=== PATIENT | female | born 1985 | race Hispanic/Latino ===

== ENCOUNTER 2018-01-29 21:14 | Observation (INO) | payer BC, MEDICAID ==
--- NOTE | 2018-01-29 21:51 | ED PDOC ---
HPI: Abdomen Time Seen by Provider: 01/29/18 21:30 Chief Complaint (Nursing): Abdominal Pain Chief Complaint (Provider): Pelvic Pain History Per: Patient History/Exam Limitations: no limitations Onset/Duration Of Symptoms: Days (x2) Current Symptoms Are (Timing): Still Present Additional Complaint(s): 32 y/o female with a PMHx of endometriosis and Factor Five Leiden Deficiency presents to the ED for evaluation of pelvic pain, onset two days ago. Patient states pain is consistent with previous flares of endometriosis. Patient reports her last exploratory laparoscopy was about five and a half years ago with extensive endometriosis of the bowel, bladder and ovaries. Otherwise, patient denies fever, nausea, vomiting and urinary symptos. PMD: Kimberly Past Medical History Reviewed: Historical Data, Nursing Documentation, Vital Signs Vital Signs: Last Vital Signs Temp 98.2 F 01/29/18 21:23 Pulse 79 01/29/18 21:23 Resp 18 01/29/18 21:23 BP 118/69 01/29/18 21:23 Pulse Ox 100 01/29/18 21:23 - Medical History Other PMH: Endometriosis and Factor Five Leiden Deficiency - Surgical History Other surgeries: Exploratory Laparoscopy - Family History Family History: States: Unknown Family Hx - Social History Current smoker - smoking cessation education provided: No Alcohol: None Drugs: Denies - Home Medications Home Medications: Ambulatory Orders Medication Instructions Recorded RX: No Known Home Med 01/29/18 - Allergies Allergies/Adverse Reactions: Allergies Allergy/AdvReac Type Severity Reaction Status Date / Time No Known Allergies Allergy Verified 01/29/18 21:22 Review of Systems ROS Statement: Except As Marked, All Systems Reviewed And Found Negative Constitutional: Negative for: Fever Gastrointestinal: Negative for: Nausea, Vomiting Genitourinary Female: Positive for: Pelvic Pain. Negative for: Dysuria, Frequency, Hematuria Physical Exam - Reviewed Nursing Documentation Reviewed: Yes Vital Signs Reviewed: Yes - Physical Exam Appears: Positive for: No Acute Distress Head Exam: Positive for: ATRAUMATIC, NORMOCEPHALIC Skin: Positive for: Normal Color, Warm, Dry Eye Exam: Positive for: Normal appearance, EOMI, PERRL Neck: Positive for: Normal, Painless ROM Cardiovascular/Chest: Positive for: Regular Rate, Rhythm. Negative for: Murmur Respiratory: Positive for: Normal Breath Sounds. Negative for: Respiratory Distress Gastrointestinal/Abdominal: Positive for: Tenderness (Diffuse abdominal tenderness) Extremity: Positive for: Normal ROM. Negative for: Deformity Neurologic/Psych: Positive for: Alert, Oriented. Negative for: Motor/Sensory Deficits - Laboratory Results Result Diagrams: 01/29/18 23:01 01/29/18 22:42 - ECG O2 Sat by Pulse Oximetry: 100 (RA) Pulse Ox Interpretation: Normal Medical Decision Making Medical Decision Making: Time: 2133 Impression: 32 y/o female with acute flare of pelvic pain, in setting of known endometriosis. Plan: -- ABO/RH Type -- Type and Screen -- CMP -- ED Urine -- ED Urine Dipstick -- CBC with Differentials -- PTT -- Prothrombin Time -- Heplock Insertion -- Urinalysis -- Pelvis/Transvaginal US -- Case discussed with Dr. Gomes who advised patient can be placed on observation for further management of acute endometriosis. Scribe Attestation: Documented by Caesar Sheppard, acting as a scribe for Wade Santos MD. Provider Scribe Attestation: All medical record entries made by the Scribe were at my direction and personally dictated by me. I have reviewed the chart and agree that the record accurately reflects my personal performance of the history, physical exam, medical decision making, and the department course for this patient. I have also personally directed, reviewed, and agree with the discharge instructions and disposition. Disposition - Clinical Impression Clinical Impression: Pelvic pain, Endometriosis - Patient ED Disposition Is Patient to be Admitted: Yes Discussed With : Rashi Gomes - Disposition Disposition Time: 21:39 Condition: FAIR - Pt Status Changed To: Hospital Disposition Of: Observation
[2018-01-29] MEDS: Lactated Ringer's 1,000 ML IV STA (22:32)
[2018-01-29 22:49] LABS: SQUAMOUS EPITHIAL < 1 /hpf (0-5); URINE BACTERIA RARE (<OCC); URINE BILIRUBIN NEGATIVE (NEGATIVE); URINE BLOOD NEGATIVE (NEGATIVE); URINE CLARITY CLEAR (Clear); URINE COLOR COLORLESS (YELLOW); URINE GLUCOSE (UA) NEG (NEGATIVE); URINE LEUKOCYTE ESTERASE NEG Leu/uL (Negative); URINE PROTEIN NEGATIVE (NEGATIVE); URINE UROBILINOGEN 0.2-1.0 mg/dL (0.2-1.0)
[2018-01-29 23:02] LABS: BASO % 0.8 % (0.0-2.0); EOS # 0.1 K/uL (0.0-0.7); EOS % 1.3 % (0.0-4.0); HEMOGLOBIN 12.7 g/dL (12.0-16.0); LYMPH # 2.5 K/uL (1.0-4.3); LYMPH % 52.4 % (20.0-40.0); MEAN CELL VOLUME 91.7 fl (81.0-99.0); MEAN CORPUSCULAR HEMOGLOBIN 30.9 pg (27.0-31.0); MEAN CORPUSCULAR HGB CONC 33.7 g/dL (33.0-37.0); MEAN PLATELET VOLUME 7.3 fl (7.2-11.7); MONO # 0.3 K/uL (0.0-0.8); MONO % 5.7 % (0.0-10.0); NEUT # 1.9 K/uL (1.8-7.0); NEUT % 39.8 % (50.0-75.0); NRBC % 0.1 % (0.0-0.0); RBC 4.1 Mil/uL (3.80-5.20); RED CELL DISTRIBUTION WIDTH 12.5 % (11.5-14.5); WHITE BLOOD COUNT 4.8 K/uL (4.8-10.8)
[2018-01-29 23:05] LABS: ALB/GLOB RATIO 1.6 (1.0-2.1); ALBUMIN 4.4 g/dL (3.5-5.0); ALT/SGPT 24 U/L (9-52); AST/SGOT 29 U/L (14-36); BLOOD UREA NITROGEN 8 mg/dl (7-17); CALCIUM 9.2 mg/dL (8.4-10.2); GFR NON-AFRICAN AMERICAN > 60
[2018-01-29 23:23] LABS: INR 1.2; PROTHROMBIN TIME 14.1 Seconds (9.8-13.1)
[2018-01-29 23:24] LABS: PARTIAL THROMBOPLASTIN TIME 31.3 Seconds (25.6-37.1)
[2018-01-30] MEDS ORDERED: Magnesium Citrate Oral SOL (300 ml) PO ONE ×2 (02:47→02:54)
[2018-01-30 09:56] VITALS: BMI 18.4
--- NOTE | 2018-01-30 10:54 | US ---
Date of service: 01/29/2018 HISTORY: pelvic pain COMPARISON: None available. TECHNIQUE: Transabdominal and transvaginal pelvic ultrasound was performed with longitudinal and transverse images submitted for interpretation. FINDINGS: UTERUS: Measures 8.1 x 4.1 x 6.3 cm. Normal in size and appearance. No fibroid or other mass lesion seen. ENDOMETRIUM: Measures 11.0 mm in diameter. Unremarkable. CERVIX: No cervical abnormality identified. RIGHT OVARY: Measures 3.1 x 2.9 x 2.6 cm. No solid mass. Normal flow. A few follicles identified with the dominant follicle measure 1.5 x 1.2 cm. LEFT OVARY: Measures 2.8 x 2.7 x 2.3 cm. No solid mass. Normal flow. Small scattered follicles identified. No suspicious pattern overall. FREE FLUID: Mild amount of fluid is anechoic at the cul-de-sac. OTHER FINDINGS: None. IMPRESSION: Unremarkable uterus cervix and endometrium. Bilateral ovarian follicles with normal size ovaries and no solid masses bilateral adnexal compartments. Dominant follicle right ovary 1.5 cm. No sonographic evidence to suggest ovarian torsion at either adnexal compartment. Mild amount of fluid identified in the cul-de-sac. Concordant preliminary report from [facility], 01/30/2018 1:50 a.m..
[2018-01-30] MEDS: Lactated Ringer's 1,000 ML IV STA (12:22)
[2018-01-30] MEDS ORDERED: Rocuronium 10 mg/ml (5 ml) ONE (13:28)
[2018-01-30] MEDS ORDERED: Propofol 10 mg/ml Inj (20 ML) ONE (13:28)
[2018-01-30] MEDS ORDERED: Lidocaine 4% (Laryng-O-Jet) Kit MM ONE (13:29)
[2018-01-30] MEDS ORDERED: Succinylcholine 200 mg/10 ml Inj IV ONE (13:31)
[2018-01-30] MEDS ORDERED: Midazolam 2 MG/2 ML VIAL ONE (13:32)
[2018-01-30] MEDS ORDERED: ePHEDrine 50 mg/ml Inj ONE (13:32)
--- NOTE | 2018-01-30 13:44 | CP.PCM.HP ---
History of Present Illness - History of Present Illness History of Present Illness: 32 yo with acute abdominal pelvic pain. walk into the er history of prior surgery for endometriosis Present on Admission - Present on Admission Any Indicators Present on Admission: No History of DVT/PE: No History of Uncontrolled Diabetes: No Urinary Catheter: No Decubitus Ulcer Present: No Review of Systems - Gastrointestinal Gastrointestinal: Abdominal Pain, Bloating, Constipation - Genitourinary Genitourinary: Dysuria, Urinary Frequency, Urinary Urgency - Reproductive: Female Reproductive:Female: Dysmenorrhea, Dyspareunia, Sexual Dysfunction - Menstruation Menstruation: Normal Menses, Spotting Between Cycles Past Patient History - Past Medical History & Family History Past Medical History?: Yes - Past Social History Alcohol: None Drugs: Denies - CARDIAC Hx Cardiac Disorders: No - PULMONARY Hx Respiratory Disorders: No - NEUROLOGICAL Hx Neurological Disorder: No - HEENT Hx HEENT Problems: No - RENAL Hx Chronic Kidney Disease: No - ENDOCRINE/METABOLIC Hx Endocrine Disorders: No - HEMATOLOGICAL/ONCOLOGICAL Hx Blood Disorders: Yes (factor 5 leiden deficiency) Hx AIDS: No Hx Human Immunodeficiency Virus (HIV): No - INTEGUMENTARY Hx Dermatological Problems: No - MUSCULOSKELETAL/RHEUMATOLOGICAL Hx Musculoskeletal Disorders: No Hx Falls: No - GASTROINTESTINAL Hx Gastrointestinal Disorders: No - GENITOURINARY/GYNECOLOGICAL Hx Genitourinary Disorders: Yes (endometriosis) - PSYCHIATRIC Hx Psychophysiologic Disorder: No Hx Substance Use: Yes - SURGICAL HISTORY Hx Surgeries: Yes Other/Comment: excision sx for endometriosis - ANESTHESIA Hx Anesthesia: Yes Hx Anesthesia Reactions: No Meds Allergies/Adverse Reactions: Allergies Allergy/AdvReac Type Severity Reaction Status Date / Time No Known Allergies Allergy Verified 01/29/18 21:22 Physical Exam - GI/Abdominal Exam GI & Abdominal Exam: Tenderness Additional comments: point vaginal cuff tenderness Results - Vital Signs Recent Vital Signs: Last Vital Signs Temp 99 F 01/30/18 13:20 Pulse 75 01/30/18 13:20 Resp 20 01/30/18 13:20 BP 125/68 01/30/18 13:20 Pulse Ox 98 01/30/18 13:20 - Labs Result Diagrams: 01/29/18 23:01 01/29/18 22:42 Labs: Laboratory Results - last 24 hr 01/29/18 01/29/18 01/29/18 22:38 22:42 22:42 WBC RBC Hgb Hct MCV MCH MCHC RDW Plt Count MPV Neut % (Auto) Lymph % (Auto) Brown % (Auto) Eos % (Auto) Baso % (Auto) Neut # (Auto) Lymph # (Auto) Brown # (Auto) Eos # (Auto) Baso # (Auto) PT 14.1 H INR 1.2 APTT 31.3 Sodium 138 Potassium 3.7 Chloride 105 Carbon Dioxide 25 Anion Gap 12 BUN 8 Creatinine 0.8 Est GFR ( Amer) > 60 Est GFR (Non-Af Amer) > 60 Random Glucose 87 Calcium 9.2 Total Bilirubin 0.6 AST 29 ALT 24 Alkaline Phosphatase 36 L Total Protein 7.1 Albumin 4.4 Globulin 2.7 Albumin/Globulin Ratio 1.6 Urine Color Urine Clarity Urine pH Ur Specific [place] Urine Protein Urine Glucose (UA) Urine Ketones Urine Blood Urine Nitrate Urine Bilirubin Urine Urobilinogen Ur Leukocyte Esterase Urine Microscopic WBC Ur Squamous Epith Cells Urine Bacteria Blood Type A POSITIVE Blood Type Confirm Antibody Screen Negative BBK History Checked No verified bt 01/29/18 01/29/18 01/30/18 22:42 23:01 11:00 WBC 4.8 RBC 4.10 Hgb 12.7 Hct 37.6 MCV 91.7 MCH 30.9 MCHC 33.7 RDW 12.5 Plt Count 219 MPV 7.3 Neut % (Auto) 39.8 L Lymph % (Auto) 52.4 H Brown % (Auto) 5.7 Eos % (Auto) 1.3 Baso % (Auto) 0.8 Neut # (Auto) 1.9 Lymph # (Auto) 2.5 Brown # (Auto) 0.3 Eos # (Auto) 0.1 Baso # (Auto) 0.0 PT INR APTT Sodium Potassium Chloride Carbon Dioxide Anion Gap BUN Creatinine Est GFR ( Amer) Est GFR (Non-Af Amer) Random Glucose Calcium Total Bilirubin AST ALT Alkaline Phosphatase Total Protein Albumin Globulin Albumin/Globulin Ratio Urine Color Colorless Urine Clarity Clear Urine pH 8.0 Ur Specific [place] < 1.005 Urine Protein Negative Urine Glucose (UA) Neg Urine Ketones Negative Urine Blood Negative Urine Nitrate Negative Urine Bilirubin Negative Urine Urobilinogen 0.2-1.0 Ur Leukocyte Esterase Neg Urine Microscopic WBC < 1 Ur Squamous Epith Cells < 1 Urine Bacteria Rare Blood Type Blood Type Confirm A POSITIVE Antibody Screen BBK History Checked Assessment & Plan - Assessment and Plan (Free Text) Plan: acute pelvic pain rule out ovarian torsion , endometriosis emergency laparoscopy - Date & Time Date: 01/30/18 Time: 07:00
[2018-01-30] MEDS ORDERED: Lactated Ringer's 1,000 ML IV ONE ×2 (14:15→14:20)
[2018-01-30] MEDS ORDERED: Dexamethasone 4 mg/1 ml ONE (14:50)
[2018-01-30] MEDS: Bupivacaine HCl 0.25% PF (30 ml) Inj ONE ×2 (14:53→16:28)
[2018-01-30] MEDS ORDERED: Neostigmine 1:1000 (1 mg/ml) Inj ONE (16:17)
--- NOTE | 2018-01-30 16:35 | PCM.OP ---
Operative Report - Operative Report Date of Surgery/Procedure: 01/30/18 Time of Surgery/Procedure: 15:00 Surgeon: Dr. Job Cintron Boilermaker: Dr. Rashi Gomes Anesthesia/Sedation: gerneral/Dr. Foreman Pre-Operative Diagnosis: severe abdominal pain and endometriosis Post-Operative Diagnosis: same Indication for Surgery: as above Operative Findings: endometriosis with extenasive intestinal involvement Procedure/Operation Description: 1-Excision mutliple rectal, perirectal and sigmoid colon endometriosis (times 6) 2-Appendectomy Brief History: This 32 year old woman was admitted through the ED with significant, sever, pelvic and abdominal oain from known endometriosis. She had been already taken to the operating room by Dr. Gomes when he requested intraoperative assistance from general, surgery for extensive intestinal involvement Description of the Procedure: The patient had already had the robotic procedure initiated by Dr. Gomes (separate dictation). After taking control of the robotic console the first lesion on the rectum was incised with electrocautery and blunt and shrp dissection and excised en-bloc and sent to pathology separately. The remaining 5 other lesion were removed in a similar fashion including the sigmoid lesions and all were appropriately marked and sent to pathology separately. The one distal rectal lesion was then closed with interrupted 3-0 vicryl suture. Our attetnion turned to the appendix and with anterior retraction the mesentery as dessicated with monopolar energy to the level of the appendiceal artery. The appendix was ligated with 3-0 vicryl endoloops, transected and sent to pathology separately. Hemostasis was deemed adequate. All counts were correct. The operation was then turned over to Dr. Gomes (separate dictation Dr. Gomes). Estimated Blood Loss: 10 cc Complications: none Specimen: 1-Rectal and perirectal endometriosis (times 5) 2-Sigmoid endometriosis 3-Appendix Discharge & Condition: stable
[2018-01-30] MEDS ORDERED: HYDROmorphone 0.5 mg/0.5 ml ISec IVP PRN (16:58)
[2018-01-30] MEDS ORDERED: Oxycodone/Acetaminophen 5/325 mg Tab PO PRN ×2 (16:59)
[2018-01-30] MEDS ORDERED: Lactated Ringer's 1,000 ML IV SCH ×2 (17:00)
[2018-01-30] MEDS ORDERED: Enoxaparin 30 mg Syringe SC SCH (21:00)
[2018-01-31] MEDS ORDERED: Enoxaparin 40 mg Syringe SC SCH (09:00)
[2018-01-31 11:29] VITALS: RESP 20
[2018-01-31 14:31] VITALS: BP 113/55; PULSE 65; TEMP 99; O2SAT 99
--- NOTE | 2018-02-03 08:57 | OP ---
PROCEDURE DATE: 01/30/2018 SURGEON: Rashi Gomes MD [employer] LIBRARIAN: Job Cintron MD ANESTHESIOLOGIST: Ibeth Ayala MD, MD, Lorenzo TYPE OF ANESTHESIA: General endotracheal. PREOPERATIVE DIAGNOSES: 1. Incapacitating pelvic pain. 2. Incapacitating abdominal pain. 3. Abnormal uterine bleeding. 4. History of pelvic endometriosis. 5. History of previously failed medical and surgical therapy. 6. Gastrointestinal and genitourinary symptoms. 7. Rule out interstitial cystitis. 8. History of severe endometriosis and pelvic adhesions POSTOPERATIVE DIAGNOSES: 1. Incapacitating pelvic pain. 2. Incapacitating abdominal pain. 3. Abnormal uterine bleeding. 4. History of pelvic endometriosis. 5. History of previously failed medical and surgical therapy. 6. History of severe endometriosis and pelvic adhesions. 7. Gastrointestinal and genitourinary symptoms. 8. 9. Mild ureteral distention. PROCEDURES PERFORMED: 1. Exam under anesthesia. 2. Video assisted hysteroscopy. 3. Cystoscopy. 4. Bilateral ureteral catheterization and injection of IC-Green dye. 5. Robotic da Alysia operative laparoscopy. 6. Treatment of endometriosis. 7. Excision of endometriosis. 8. Bilateral ureterolysis. 9. Bilateral ovariolysis. COMPLICATIONS: None. SAMPLES SENT: 1. Left Uterosacral l endometriosis. 2. Left periureteral endometriosis. 3. Right periureteral endometriosis. 4. Right uterosacral endometriosis. 5. Left and right ovarian fossa endometriosis. 6. Iliac endometriosis. 7. Posterior cervical endometriosis. 8. Rectal endometriosis, anterior. 9) Cul de sac endometriosis INDICATION FOR THE PROCEDURE AND CONSENT: The patient had a long history of pelvic pain, dysmenorrhea, dyspareunia, abdominal pain, and bladder pain. The patient had been thoroughly evaluated and counseled regarding the pros and cons of the procedure, the reasonable alternatives, and possible complications. She understood and accepted the risks involved. Literature was provided to the patient. The patient was understanding and given her history and per surgical exam, she was at high risk in an average patient. She accepted all the risks involved, and all the questions had been answered to her satisfaction. FINDINGS OF SURGERY: Genitalia: Normal external genitalia, cervix without lesion and polyps. Hysteroscopy: Hysteroscopy shows a clear uterine cavity with no polyps or masses noticed. Cystoscopy: The cystoscopy was performed to rule out endometriosis and also any interstitial cystitis and also injury. The bladder was normal with no evidence of stone, trigonitis, or cystitis. A positive jet flow was identified in both ureters. Laparoscopy: The upper abdomen appeared to be normal. Gallbladder was normal. Liver edges appeared to be normal. Ascending colon and transverse were normal. There was evidence of adhesions, fibrosis, and endometriosis of the rectovaginal and pelvic sidewalls. The appendix appeared to be fibrotic and abnormal . Both fallopian tubes appeared to be patent, although there was evidence of inflammation on the serosal surface of both fallopian tubes, and there was slight conglutination of both fimbriated ends although they both appeared to be functional. There was also evidence of mild hydroureters. DESCRIPTION OF THE PROCEDURE: Initiation of the case: After adequate anesthesia was obtained, the patient was placed in the dorsal lithotomy position, and with extreme care, placement of the patient with hyperextension and hyperflexing of the hips. At this point, the patient was prepped and draped. The surgeon was gowned and gloved. A timeout was taken according to the hospital procedure and the procedure was started. At this point, we performed cystoscopy, bilateral ureteral catheterization. A cystoscope was inserted into the bladder under direct visualization and the bladder was visualized. The bladder was free of lesions and tumors. There was no evidence of interstitial cystitis, and there was only mild amount of trigonitis. At this point, both ureters were identified and appeared to be in their normal anatomical position. At this point, utilizing an open 5-Samoan open-ended catheter, the left ureter was catheterized all the way to the distal ureter, and 5 mL of IC-Green was injected into this ureter. Similarly, the contralateral ureter was catheterized all the way to the distal ureter, and 5 mL of IC-Green was injected into the distal ureter. At this point, the stents were removed, and the cystoscope was removed, and the 16-Samoan Stacy was inserted into the bladder. At this point, we proceeded with a hysteroscopy. A speculum was placed into vagina, and the anterior lip of the cervix was grasped. The cervix was dilated, and a hysteroscope was inserted into the cavity. The cavity appeared to be of normal size with no evidence of polyps, cysts, adenomyosis, or fibroids. At this point, we proceeded with placement of a trocar and docking of the da Alysia Xi robot. The surgeon was re-gowned and gloved, and open laparoscopy was performed by making incision in the umbilicus and the fascia was incised. The peritoneum was entered in a blunt fashion, and the cannula was inserted under direct visualization. The abdomen was insufflated, and under direct visualization, three additional ports were inserted in the left upper quadrant, left mid quadrant, and right upper quadrant. At this point, the da Alysia Xi robot was brought into the field and docked, and the instruments were inserted under direct visualization. All this with extreme care not to injure the bowel or another area. As per dictation, the upper abdomen appeared to be normal with no evidence of any lesions. At this point, we proceeded with a left ureterolysis. The ureter appeared to be dilated and was clearly identified utilizing IC-Green fluorescent technology. Anesthesia was made in the peritoneum at the top of the pelvic brim, and the incision was then carried down all the way opening the peritoneum all the way down from the pelvic brim, all the way down to the ovarian fossa, extending the incision below the ovary. It was a progressive dissection where the ureter was progressively lateralized and peritoneum was medialized, thus freeing the ureter all the way down to the cross of the uterine vessels. After this was done, the ureter was freed and lateralized, and a larger peritoneum which had been opened, was excised, and sent to pathology. At this point, with the aid of very slow process, I was able to elevate the ovary and proceed with ovariolysis. At this point, we proceeded with a left ovariolysis. The left ovary was adherent to the posterior aspect of the uterus. It was gently dissected in a step by step way. It was peeled off, the ovarian fossa, andan area of extensive fibrosis and endometriosis was exposed. At this point, we proceeded with a right ureterolysis. The ureter was identified again utilizing fluorescent technology on the right hand side and retroperitoneal space was entered, and a full dissection was performed,entering the retroperitoneal space and dissecting the ureter, removing the ureter laterally and the peritoneum medially. A full dissection was performed all the way down to the ovarian fossa and the crossing of the uterine arteries. An area of peritoneum containing endometriosis was dissected and sent to Pathology. At this point, we proceeded with a right ovariolysis. The right ovary was adherent to the peritoneum. It was gently elevated progressively, and dissected off from the peritoneal area. All this done with extreme care to preserve vascularization to the ovary. At this point, we proceeded with treatment of endometriosis and excision of endometriosis. On the left hand side, fibrosis, especially in the left ovarian fossa was excised. In a very progressive step by step fashion, we dissected off fibrosis containing endometriosis and freed up the whole area. The ureters which had been lateralized. Areas of fibrosis and endometriosis were also identified in the posterior cul-de-sac and in the rectovaginal space which was also affected with endometriosis and fibrosis. At this point, we proceeded with the excision of perirectal endometriosis. The rectovaginal area had significant fibrosis and additional endometriosis was dissected from the posterior aspect of the uterus, and the rectovaginal space was entered at the level of the peritoneal reflection. All this done making sure that no damage to the rectum was performed. At this point, endometriosis was also excised from the right uterosacral area which also was affected by fibrosis and endometriosis. At this point, it was checked for hemostasis and appeared to be excellent. Both fallopian tubes were in good condition and patent. At this point the console was handed over to Dr. Cintron from General surgery who proceeded with excision mutliple rectal, perirectal and sigmoid colon endometriosis (times 6) and appendectomy procedure. He will dictate that separately. After he was done we checked for hemostasis and organ integrity and all was normal. At this point, the da Alysia Xi robot was removed. The abdomen was desufflated, and the incisions were closed in layers with 0 PDS for the fascia and 4-0 Monocryl for the skin. At the end of the procedure, all tips and instrument counts were correct. The patient tolerated the procedure well and was taken to the recovery room in excellent condition. Eliseo COUCH, Rashi GLASS
== END 2018-01-31 14:15 | disposition home or self-care (01) ==
LOC: H.ER 21:14 → H.ERHOLD 21:39 → H.PEDS 01-30 00:58
PROVIDERS: ADMIT Obstetrics & Gynecology Reproductive Endocrinology; ATTEND Obstetrics & Gynecology Reproductive Endocrinology
DX: N80.0 Endometriosis of uterus (principal); N80.1 Endometriosis of ovary; N80.3 Endometriosis of pelvic peritoneum; N80.5 Endometriosis of intestine; N93.9 Abnormal uterine and vaginal bleeding, unspecified; D68.51 Activated protein C resistance; N13.4 Hydroureter; N73.6 Female pelvic peritoneal adhesions (postinfective)
CPT/HCPCS: 36415; 44111; 44950; 45999; 52005; 58555; 58940; 58999; 76830; 76856; 80053; 81003; 81025; 85025; 85610; 85730; 86850; 86900; 88305; 96372; 96374; 96375; 96376; 99285; C1729; G0378; J0330; J0690; J1100; J1650; J1885; J2001; J2250; J2405; J2704; J2710; J2765; J3010; J7030; J7120; S2900